=== PATIENT | female | born 1955 | race Caucasian/White ===

== ENCOUNTER → 2021-09-01 09:58 | Outpatient (BNVA) | payer OTHER, BC, SELFPAY | PROVIDERS: PCP Internal Medicine; Visit Provider Nurse Practitioner Family ==

== ENCOUNTER → 2022-03-18 08:01 | Outpatient (BNVA) | payer MEDICARE, OTHER, SELFPAY | PROVIDERS: PCP Internal Medicine; Visit Provider Nurse Practitioner Family | DX: G47.33 Obstructive sleep apnea (adult) (pediatric) (principal); F51.02 Adjustment insomnia | CPT/HCPCS: 99212 ==

== ENCOUNTER → 2022-09-21 08:52 | Outpatient (BNVA) | payer MEDICARE, SELFPAY | PROVIDERS: PCP Internal Medicine; Visit Provider Nurse Practitioner Family | DX: G47.33 Obstructive sleep apnea (adult) (pediatric) (principal); F51.02 Adjustment insomnia; Z79.899 Other long term (current) drug therapy | CPT/HCPCS: 99212 ==

== ENCOUNTER 2023-03-22 08:55 | Outpatient (AMB) | payer MEDICARE, SELFPAY ==
--- NOTE | 2023-03-22 08:59 | A.OFFVIS_ITS ---
Intake Vital Signs 03/22/23 09:00 Height 5 ft 9 in Weight 169 lb BMI 25.0 BP 136/82 Blood Pressure Location Rt brachial Position Sitting Pulse 66 Pulse Source Pulse Oximeter Pulse Oximetry (%) 96 Oxygen Delivery Method Room Air Intake Visit Reasons: 6m follow up TWAN - Confirmed Intake Note: Patient presents for TWAN follow up. Patient states I love my CPAP machine, I couldn't live without it Allergies codeine [Codeine] Adverse Reaction (Mild, Verified 03/22/23 09:02) N/V HPI HPI Comments History of Present Illness Details 67-yr-old female presents for f/u visit. Pt denies any significant interval medical changes. Pt reports she is sleeping well. She is compliant with her APAP, and feels good with use. She notes that when she takes the Amitriptyline 150mg tab it is not as effective as the 3 50mg tabs. She also notes that her meds are not as effective when she eats a larger meal. She wonders if she should take Mag supplement- deneis muscle tightness, cramps/ spasms, usual headaches. PFSH Surgical History Hx of knee surgery Hx of shoulder surgery Hx of spinal surgery Family History Father HTN (hypertension) Arthritis Mother HTN (hypertension) Arthritis Alzheimer disease Social History Alcohol intake: never Patient Tobacco Use Status: Never used Tobacco Review of Systems Const All systems reviewed & are unremarkable except as noted in HPI and below Physical Exam Vital Signs: Last Vital Signs Pulse 66 03/22/23 09:00 BP 136/82 03/22/23 09:00 Pulse Ox 96 03/22/23 09:00 Oxygen Delivery Method Room Air 03/22/23 09:00 BMI result Body Mass Index 25.0 Const General: cooperative and no acute distress Orientation/consciousness: patient oriented x3 HEENT Head: Yes normocephalic Resp Effort & Inspection: normal respiratory effort and able to speak in complete sentences Neuro General: patient oriented x3, gait normal and CN's II-XI intact bilaterally Cognition (Neuro): normal cognition Motor exam (neuro): 5/5 motor strength present throughout Psych Appearance: grossly normal Mental Status: mental status grossly normal Speech and movement: Normal speech and movement present Affect: normal affect Attitude: cooperative Thought process: Normal thought process present Thought content: Normal thought content present Insight: Good insight present (Psych) Judgement: Good judgement present (Psych) Assessment & Plan Assessment & Plan (1) Insomnia due to psychological stress: Code(s): F51.02 - Adjustment insomnia (2) Obstructive sleep apnea: Comment: AHI 12/hr, REM AHI 44/hr, O2 beulah 80%. Code(s): G47.33 - Obstructive sleep apnea (adult) (pediatric) Plan Discussed that I do not see an indication to start Mag supplement at this time- she may continue her usual daily women's MVI. Continue Clonazepam 2mg qhs for insomnia. Continue Amitriptyline- refilled as 150mg tab qhs- in hopes this has lower co- pay. Continue Gabapentin 900mg qhs. Continue APAP 6-16 cmH2O nightly > 4 hours, as pt is having good clinical effect. Clean machine and supplies daily. Change PAP supplies routinely. Pt to call us/respiratory home care company with any concerns. f/u in 6 months or sooner prn new/worsening s/s. Medications: Refilled clonazepam administer 30 minutes before bedtime 2 mg PO BEDTIME 90 days 90 tabs 1RF Discontinued amitriptyline Discontinued Reason: Change Referral Type 150 mg PO BEDTIME 90 days 90 tabs 1RF Coding Level of Care Code Est Pt Level 4 (56132) Diagnoses Insomnia due to psychological stress F51.02 Obstructive sleep apnea G47.33
[2023-03-22 09:00] VITALS: BP 136/82; PULSE 66; O2SAT 96; BMI 25.0
== END 2023-03-22 09:45 | disposition home or self-care (01) ==
PROVIDERS: Visit Provider Nurse Practitioner Family
DX: F51.02 Adjustment insomnia (principal); G47.33 Obstructive sleep apnea (adult) (pediatric)
CPT/HCPCS: 99214

== ENCOUNTER → 2023-03-22 08:55 | Outpatient (BNVA) | payer MEDICARE, SELFPAY | PROVIDERS: Visit Provider Nurse Practitioner Family | DX: G47.33 Obstructive sleep apnea (adult) (pediatric) (principal); F51.02 Adjustment insomnia; Z79.899 Other long term (current) drug therapy | CPT/HCPCS: 99212 ==

== ENCOUNTER 2023-11-06 10:03 | Outpatient (AMB) | payer MEDICARE, SELFPAY ==
[2023-11-06 10:36] VITALS: BP 126/82; PULSE 82; O2SAT 99; BMI 26.1
--- NOTE | 2023-11-06 10:36 | MHC.OFFVIS ---
Intake Vital Signs 11/06/23 10:36 Height 5 ft 9 in Weight 177 lb BMI 26.1 BP 126/82 Blood Pressure Location Rt brachial Position Sitting Pulse 82 Pulse Source Pulse Oximeter Pulse Oximetry (%) 99 Oxygen Delivery Method Room Air Intake Visit Reasons: 6m follow up TWAN - Confirmed Intake Note: Patient 6 month follow up TWAN.everything is good Allergies codeine [Codeine] Adverse Reaction (Mild, Verified 11/06/23 10:55) N/V Medication List - Last Reconciled 11/06/23 by WALTER Kurtz amitriptyline 150 mg (3 x 50 mg) PO BEDTIME 90 days calcium carbonate-vitamin D3 600 mg-20 mcg (800 unit) (Caltrate 600 plus D) 1 tab PO DAILY clonazepam 2 mg PO BEDTIME 90 days dronabinol 10 mg PO BID gabapentin 900 mg (3 x 300 mg) PO BEDTIME 90 days magnesium oxide 400 mg PO DAILY nitroglycerin mg sublingual omeprazole 20 mg PO DAILY rosuvastatin 10 mg PO BEDTIME HPI HPI Comments History of Present Illness Details 68yr-old female presents for follow-up visit. Pt denies any significant interval medical changes. She states she is sleeping well w/ her current sleep meds. Denies falls, unsteady gait. Using CPAP nightly. Sometimes the mask may leave leave a sara on her face in the am. Compliance Report, 10/06/2023 - 11/04/2023 Usage days 30/30 days (100%) >= 4 hours, 29 days (97%) < 4 hours 1 days (3%) Average usage (days used) 7 hours 49 minutes AirSense 10 AutoSet Serial number [id number] Mode AutoSet Min Pressure 6 cmH2O Max Pressure 16 cmH2O EPR Off, Maximum: 14.1 cmH2O Residual AHI: 1.1/hr (Apnea Index Central: 0.4 Obstructive: 0.2 Unknown: 0.1) PFSH Surgical History Hx of shoulder surgery Hx of spinal surgery Hx of knee surgery Family History Father HTN (hypertension) Arthritis Mother HTN (hypertension) Arthritis Alzheimer disease Social History Alcohol intake: never Patient Tobacco Use Status: Never used Tobacco Review of Systems Const All systems reviewed & are unremarkable except as noted in HPI and below Physical Exam Vital Signs: Last Vital Signs Pulse 82 11/06/23 10:36 BP 126/82 11/06/23 10:36 Pulse Ox 99 11/06/23 10:36 Oxygen Delivery Method Room Air 11/06/23 10:36 BMI result Body Mass Index 26.1 Const General: no acute distress Orientation/consciousness: patient oriented x3 Resp Effort & Inspection: normal respiratory effort and able to speak in complete sentences Auscultation: clear to auscultation bilaterally Cardio Rate: regular rate Rhythm: regular rhythm Neuro General: patient oriented x3 Psych Mental Status: mental status grossly normal Speech and movement: Clear speech present Attitude: cooperative Results Reviewed Results Reviewed: PAP compliance report- see HPI Assessment & Plan Assessment & Plan (1) Obstructive sleep apnea: Comment: AHI 12/hr, REM AHI 44/hr, O2 beulah 80%. Code(s): G47.33 - Obstructive sleep apnea (adult) (pediatric) (2) Insomnia due to psychological stress: Code(s): F51.02 - Adjustment insomnia Plan Continue Clonazepam 2mg qhs for insomnia. Continue Amitriptyline- 150mg qhs.. Continue Gabapentin 900mg qhs. Continue APAP 6-16 cmH2O nightly > 4 hours, as pt is having good clinical effect. Clean machine and supplies daily. Change PAP supplies routinely. Pt to call us/respiratory home care company with any concerns. f/u in 6 months or sooner prn new/worsening s/s. Medications: Refilled amitriptyline 150 mg (3 x 50 mg) PO BEDTIME 90 days 270 tabs 1RF Coding Level of Care Code Est Pt Level 4 (40733) Diagnoses Obstructive sleep apnea G47.33 Insomnia due to psychological stress F51.02
== END 2023-11-06 11:47 | disposition home or self-care (01) ==
PROVIDERS: PCP Internal Medicine; Visit Provider Nurse Practitioner Family
DX: G47.33 Obstructive sleep apnea (adult) (pediatric) (principal); F51.02 Adjustment insomnia
CPT/HCPCS: 99214

== ENCOUNTER → 2023-11-06 10:03 | Outpatient (BNVA) | payer MEDICARE, SELFPAY | PROVIDERS: PCP Internal Medicine; Visit Provider Nurse Practitioner Family | DX: G47.33 Obstructive sleep apnea (adult) (pediatric) (principal); F51.02 Adjustment insomnia | CPT/HCPCS: 99212 ==

== ENCOUNTER 2024-05-07 10:07 | Outpatient (AMB) | payer MEDICARE, SELFPAY ==
--- NOTE | 2024-05-07 10:30 | MHC.OFFVIS ---
Vital Signs 05/07/24 10:31 Height 5 ft 9 in Weight 167 lb BMI 24.7 BP 128/80 Blood Pressure Location Rt brachial Position Sitting Intake Visit Reasons: Follow up Intake Note: Patient presents for follow up. Allergies codeine [Codeine] Adverse Reaction (Mild, Verified 05/07/24 10:41) N/V Medication List - Last Reconciled 05/07/24 by WALTER Kurtz amitriptyline 150 mg (3 x 50 mg) PO BEDTIME 90 days calcium carbonate-vitamin D3 600 mg-20 mcg (800 unit) (Caltrate 600 plus D) 1 tab PO DAILY clonazepam 2 mg PO BEDTIME 90 days dronabinol 10 mg PO BID gabapentin 900 mg (3 x 300 mg) PO BEDTIME 90 days magnesium oxide 400 mg PO DAILY nitroglycerin mg sublingual omeprazole 20 mg PO DAILY rosuvastatin 10 mg PO BEDTIME HPI Comments Details: 68yr-old female presents for follow-up visit of TWAN and insomnia. Pt reports she is ~ 2 weeks post-op from left shoulder rotator cuff repair for injury sustained during a fall last yr- while carrying mx bags into her home. She starts PT tomorrow. She states she is sleeping well w/ her current sleep meds. Denies falls. Using CPAP nightly- states cannot sleep without it. Compliance Report, 10/06/2023 - 11/04/2023 Usage days 30/30 days (100%) >= 4 hours 30 days (100%) < 4 hours 0 days (0%) Average usage (days used) 8 hours 30 minutes. AirSense 10 AutoSet Serial number [id number] Mode AutoSet Min Pressure 6 cmH2O Max Pressure 16 cmH2O EPR Off, Median: 10.2 95th percentile: 13.2 Maximum: 14.2 cmH2O Residual AHI: AI: 0.6 HI: 0.2 AHI: 0.8 PFSH Surgical History Hx of shoulder surgery Hx of spinal surgery Hx of knee surgery Family History Father HTN (hypertension) Arthritis Mother HTN (hypertension) Arthritis Alzheimer disease Social History Alcohol intake: never Patient Tobacco Use Status: Never used Tobacco Physical Exam Vital Signs: Last Vital Signs BP 128/80 05/07/24 10:31 BMI result Body Mass Index 24.7 Const General: no acute distress Orientation/consciousness: patient oriented x3 Resp Effort & Inspection: normal respiratory effort and able to speak in complete sentences Neuro General: patient oriented x3 Gait exam (Neuro): Normal gait present Extrem Other: LUE splinted Psych Mental Status: mental status grossly normal Speech and movement: Clear speech present Attitude: cooperative Assessment & Plan Assessment & Plan (1) Obstructive sleep apnea: Comment: AHI 12/hr, REM AHI 44/hr, O2 beulah 80%. Code(s): G47.33 - Obstructive sleep apnea (adult) (pediatric) Category: Medical (2) Insomnia due to psychological stress: Code(s): F51.02 - Adjustment insomnia Category: Medical Plan Continue Clonazepam 2mg qhs for insomnia. Continue Amitriptyline- 150mg qhs.- pt requests this be sent to local [facility] d/t cost. Continue Gabapentin 900mg qhs. Continue APAP 6-16 cmH2O nightly > 4 hours, as pt is having good clinical effect. Clean machine and supplies daily. Change PAP supplies routinely. Pt to call us/respiratory home care company with any concerns. f/u in 6 months or sooner prn new/worsening s/s. Medications: Refilled amitriptyline 150 mg (3 x 50 mg) PO BEDTIME 90 days 270 tabs 1RF gabapentin 900 mg (3 x 300 mg) PO BEDTIME 90 days 270 caps 3RF Coding Level of Care Code Est Pt Level 4 (91934) Diagnoses Obstructive sleep apnea G47.33 Insomnia due to psychological stress F51.02
[2024-05-07 10:31] VITALS: BP 128/80; BMI 24.7
== END 2024-05-07 11:18 | disposition home or self-care (01) ==
PROVIDERS: PCP Internal Medicine; Visit Provider Nurse Practitioner Family
DX: G47.33 Obstructive sleep apnea (adult) (pediatric) (principal); F51.02 Adjustment insomnia
CPT/HCPCS: 99214

== ENCOUNTER → 2024-05-07 10:07 | Outpatient (BNVA) | payer MEDICARE, SELFPAY | PROVIDERS: PCP Internal Medicine; Visit Provider Nurse Practitioner Family | DX: G47.33 Obstructive sleep apnea (adult) (pediatric) (principal); F51.02 Adjustment insomnia | CPT/HCPCS: 99212 ==

== ENCOUNTER 2024-11-19 09:36 | Outpatient (AMB) | payer MEDICARE, SELFPAY ==
[2024-11-19 09:51] VITALS: BP 126/88; PULSE 69; O2SAT 99; BMI 25.7
--- NOTE | 2024-11-19 09:51 | A.OFFVIS_ITS ---
Vital Signs 11/19/24 09:51 Height 5 ft 9 in Weight 174 lb 6 oz BMI 25.7 BP 126/88 Blood Pressure Location Rt brachial Position Sitting Pulse 69 Pulse Source Pulse Oximeter Pulse Oximetry (%) 99 Oxygen Delivery Method Room Air Intake Visit Reasons: Follow Up Intake Note: Patient presents follow up for TWAN and insomnia. Compliance in chart. Allergies codeine [Codeine] Adverse Reaction (Mild, Verified 11/19/24 09:54) N/V Medication List - Last Reconciled 11/19/24 by WALTER Kurtz amitriptyline 150 mg (3 x 50 mg) PO BEDTIME 90 days calcium carbonate-vitamin D3 600 mg-20 mcg (800 unit) (Caltrate plus D) 1 tab PO DAILY clonazepam 2 mg PO BEDTIME 90 days dronabinol 10 mg PO BID gabapentin 900 mg (3 x 300 mg) PO BEDTIME 90 days nitroglycerin mg sublingual pantoprazole 40 mg PO DAILY rosuvastatin 10 mg PO BEDTIME HPI Comments Details: 69-yr-old female presents for follow-up visit of TWAN and insomnia. Pt reports her left shoulder rotator cuff repair has resolved. She states she is sleeping well w/ her current sleep meds. Denies falls. Using CPAP nightly- states cannot sleep without it. Does note that the mask does leave german on her face. Her water reservoir may be empty when she wakes up- however this is not bothersome. She notes that during the summer, she does not have a home air conditioner in her bedroom, and thus we will switch from a heated tubing to a non heated tubing to reduce moisture condensation. Compliance Report, 08/09/2024 - 11/06/2024 Overall usage 98% Usage greater than 4 hours 93% Average usage (days used) 7 hours 24 minutes AirSense 10 AutoSet Serial number [id number] Mode AutoSet Min Pressure 6 cmH2O Max Pressure 16 cmH2O EPR Off, Maximum pressure 15.1 cm H2O Average leaks 18 L/min Residual AHI: 1.2 per hour PFSH Surgical History Hx of shoulder surgery Hx of spinal surgery Hx of knee surgery Family History Father HTN (hypertension) Arthritis Mother HTN (hypertension) Arthritis Alzheimer disease Social History Alcohol intake: never Patient Tobacco Use Status: Never used Tobacco Physical Exam Vital Signs: Last Vital Signs Pulse 69 11/19/24 09:51 BP 126/88 11/19/24 09:51 Pulse Ox 99 11/19/24 09:51 Oxygen Delivery Method Room Air 11/19/24 09:51 BMI result Body Mass Index 25.7 Const General: no acute distress Orientation/consciousness: patient oriented x3 Resp Effort & Inspection: normal respiratory effort and able to speak in complete sentences Neuro General: patient oriented x3 Gait exam (Neuro): Normal gait present Psych Mental Status: mental status grossly normal Speech and movement: Clear speech present Attitude: cooperative Assessment & Plan Assessment & Plan (1) Obstructive sleep apnea: Comment: AHI 12/hr, REM AHI 44/hr, O2 beulah 80%. Code(s): G47.33 - Obstructive sleep apnea (adult) (pediatric) Category: Medical (2) Insomnia due to psychological stress: Code(s): F51.02 - Adjustment insomnia Category: Medical Plan No evidence of medication misuse or adverse effects from her insomnia medication regimen. We will continue to monitor. Continue Clonazepam 2mg qhs for insomnia. Continue Amitriptyline- 150mg qhs.- pt requests this be sent to local [facility] d/t cost. Continue Gabapentin 900mg qhs. Continue APAP 6-16 cmH2O with EPR set to off nightly > 4 hours, as pt is having good clinical effect from use. May alternate between heated tubing and non heated tubing depending on home climate needs. Clean machine and supplies daily. Change PAP supplies routinely. Continue to use distilled water in CPAP water chamber reservoir. Pt to call us/respiratory home care company with any concerns. f/u in 6 months or sooner prn new/worsening s/s. Medications: Changed From amitriptyline 150 mg (3 x 50 mg) PO BEDTIME 60 days 180 tabs 0RF To amitriptyline 150 mg (3 x 50 mg) PO BEDTIME 90 days 270 tabs 1RF Coding Level of Care Code Est Pt Level 4 (72438) Diagnoses Obstructive sleep apnea G47.33 Insomnia due to psychological stress F51.02
== END 2024-11-19 10:43 | disposition home or self-care (01) ==
LOC: HO.HSMS 09:36
PROVIDERS: PCP Internal Medicine; Visit Provider Nurse Practitioner Family
DX: G47.33 Obstructive sleep apnea (adult) (pediatric) (principal); F51.02 Adjustment insomnia
CPT/HCPCS: 99214

== ENCOUNTER → 2024-11-19 09:36 | Outpatient (BNVA) | payer MEDICARE, SELFPAY | PROVIDERS: PCP Internal Medicine; Visit Provider Nurse Practitioner Family | DX: G47.33 Obstructive sleep apnea (adult) (pediatric) (principal); F51.02 Adjustment insomnia | CPT/HCPCS: 99212 ==

== ENCOUNTER 2025-05-20 09:30 | Outpatient (AMB) | payer MEDICARE, SELFPAY ==
--- NOTE | 2025-05-20 09:58 | A.OFFVIS_ITS ---
Vital Signs 05/20/25 10:03 Height 5 ft 9 in BP 140/80 H Blood Pressure Location Rt brachial Position Sitting Pulse 76 Pulse Source Pulse Oximeter Pulse Oximetry (%) 96 Oxygen Delivery Method Room Air Intake Visit Reasons: Follow Up Intake Note: Patient presents follow up for TWAN and insomnia. Compliance in chart. [employer] Required: No Allergies codeine (Codeine) Adverse Reaction (Mild, Verified 11/19/24 09:54) N/V HPI Comments Details: 69-yr-old female presents for follow-up visit of TWAN and insomnia. 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 She states she is worried because Dronabinol is reportedly not going to be manufactured any longer. She reports her cluneal nerve blocks, which are administered at [facility] pain management, are not fully effective. She states she often has to sit on cold pack intake 2-3 Tylenol throughout the day to take the edge off the pain. She also notes that she has had some indications of urinary retention. Her PCP has offered her urology referral, however she declined, and thus was advised to start on tamsulosin-which she has not yet started. She states she is generally sleeping well w/ her current sleep meds, however may have a few nights where she does not sleep as well followed by few nights sleeping very well. Denies falls. Using CPAP nightly- states cannot sleep without it. Compliance Report, 02/18/2025 - 05/18/2025 Overall usage: 98% Usage greater than 4 hours: 89% Average usage (days used) 7 hours 35 minutes AirSense 10 AutoSet Serial number [id number] Mode AutoSet Min Pressure 6-16 cmH2O EPR Off, * Maximum pressure 15 cm H2O Leaks: * Median: 13.9 L/min * Maximum: 34.0 L/min Residual AHI: 0.8 per hour PFSH Surgical History Hx of shoulder surgery Hx of spinal surgery Hx of knee surgery Family History Father HTN (hypertension) Arthritis Mother HTN (hypertension) Arthritis Alzheimer disease Social History Alcohol intake: never Patient Tobacco Use Status: Never used Tobacco Physical Exam Vital Signs: Last Vital Signs Pulse 76 05/20/25 10:03 BP 140/80 H 05/20/25 10:03 Pulse Ox 96 05/20/25 10:03 Oxygen Delivery Method Room Air 05/20/25 10:03 Const General: no acute distress Orientation/consciousness: patient oriented x3 Resp Effort & Inspection: normal respiratory effort and able to speak in complete sentences Neuro General: patient oriented x3 and moves all extremities Cranial nerves: Yes Normal facial strength present Gait exam (Neuro): Normal gait present Psych Mental Status: mental status grossly normal Speech and movement: Clear speech present Attitude: cooperative Assessment & Plan Assessment & Plan (1) Obstructive sleep apnea: Comment: AHI 12/hr, REM AHI 44/hr, O2 beulah 80%. Code(s): G47.33 - Obstructive sleep apnea (adult) (pediatric) Category: Medical (2) Insomnia due to psychological stress: Code(s): F51.02 - Adjustment insomnia Category: Medical Plan For recent urinary symptoms suggestive of urinary retention, she is encouraged to have neurology consult. In the meantime, if tamsulosin is not effective, we may need to consider gradual dose reduction of amitriptyline, as it carries risk for anticholinergic side effects. In regards to her question regarding cluneal neuralgia surgery to treat chronic cluneal neuralgia, I advise patient to speak to her current pain management provider regarding her concern that her current treatment plan is not fully managing her pain symptoms, and has been relying on daily as needed aceta minophen use. In the meantime, advised her to limit acetaminophen use to less than 3000 mg per day. No evidence of medication misuse or adverse effects from her insomnia medication regimen. We will continue to monitor. Continue Clonazepam 2mg qhs for insomnia. Continue Amitriptyline- 150mg qhs.- pt requests [facility] be sent to local [facility]/t cost. Continue Gabapentin 900mg qhs. Continue APAP 6-16 cmH2O with EPR set to off nightly > 4 hours, as pt is having good clinical effect from use. * May alternate between heated tubing and non heated tubing depending on home climate needs. * Clean machine and supplies daily. * Change PAP supplies routinely. * Continue to use distilled water in CPAP water chamber reservoir. * Pt to call us/respiratory home care company with any concerns related to PAP therapy f/u in 6 months or sooner prn new/worsening s/s. Coding Level of Care Code Est Pt Level 4 (79484) Diagnoses Obstructive sleep apnea G47.33 Insomnia due to psychological stress F51.02
[2025-05-20 10:03] VITALS: BP 140/80; PULSE 76; O2SAT 96
== END 2025-05-20 11:04 | disposition home or self-care (01) ==
LOC: HO.HSMS 09:30
PROVIDERS: PCP Internal Medicine; Visit Provider Nurse Practitioner Family
DX: G47.33 Obstructive sleep apnea (adult) (pediatric) (principal); F51.02 Adjustment insomnia
CPT/HCPCS: 99214

== ENCOUNTER → 2025-05-20 09:30 | Outpatient (BNVA) | payer MEDICARE, SELFPAY | PROVIDERS: PCP Internal Medicine; Visit Provider Nurse Practitioner Family | DX: G47.33 Obstructive sleep apnea (adult) (pediatric) (principal); Z99.89 Dependence on other enabling machines and devices; F51.02 Adjustment insomnia; R33.9 Retention of urine, unspecified | CPT/HCPCS: 99212 ==